=== PATIENT | female | born 1995 | race Two or more races ===

== ENCOUNTER 2024-08-19 14:45 | Emergency (ER) | payer OTHER, SELFPAY ==
[2024-08-19 15:01] VITALS: BMI 15.1
--- NOTE | 2024-08-19 15:01 | EDRN ---
Angelina Slaughter SIGNAL MANAGER currently at the pts bedside with 2 police offers placing steri strips on the pts forehead
[2024-08-19 15:03] VITALS: BP 125/93
--- NOTE | 2024-08-19 15:04 | ED.SKININJ ---
HPI-Injury
General
Chief Complaint: Skin Surface Trauma
Source: patient and police
Exam Limitations: none
Time Seen by Provider: 08/19/24 15:02
Nursing documentation reviewed up to this point in time: agreed with
History of Present Illness-Injury
Initial Injury comments:
29-year-old female brought in by [employer] police for forehead laceration from striking her forehead on a fdc cell wall within past hour, is being transported to [facility]. No LOC, Pt refusing Tdap.
Past History
Past History
ED Past Medical History: Other (Depression, substance abuse, bipolar)
Social History
Drug: Other (Uses Tranq)
Review of Systems
Review of Systems
Allergies reviewed?: Yes
All Other Systems: ROS reviewed and negative except as documented in HPI and ROS
Respiratory: Denies trouble breathing
Cardiac: Denies chest pain
ABD/GI: Denies abdominal pain
Skin: Reports other (Forehead cut. Contraction Scar right dorsal wrist)
Neurological: Denies dizzy, headache or weakness
Psychiatric: Reports depression and other
Phy Exam
Physical Exam
Physical Exam:
GENERAL: No acute distress. A&Ox3.
CONSTITUTIONAL: Afebrile.
EYES: clear, conjunctivae normal
ENMT: moist mucus membranes
RESPIRATORY: Regular respirations, nonlabored, lungs clear.
CARDIOVASCULAR: Regular rate and rhythm, no murmurs, no rubs.
GI: Soft, nontender
MUSCULOSKELETAL: Moves with ease
SKIN: Warm, dry. 5 mm laceration mid forehead
PSYCH: Anxious mood and affect. Unkempt, thrashing about at times 'It hinkle' (the wound glue).
NEUROLOGIC: Awake, alert and oriented. No focal neurological deficits
Course
Vital Signs
Initial and Last Documented VS:
Initial Vital Signs
Temp Pulse Resp BP Pulse Ox
98.1 F 111 16 125/93 98
08/19/24 15:03 08/19/24 15:03 08/19/24 15:03 08/19/24 15:03 08/19/24 15:03
Last Documented Vital Signs
Temp Pulse Resp BP Pulse Ox
98.1 F 111 16 125/93 98
08/19/24 15:03 08/19/24 15:03 08/19/24 15:03 08/19/24 15:03 08/19/24 15:03
MDM/Problems Addressed
MDM/Problems Addressed:
29-year-old female brought in by [employer] police for forehead laceration from striking her forehead on a [employer]dc cell wall, is being transported to [facility]. No LOC, Pt refusing Tdap.
Forehead lac cleansed and glued, steristrips applied.
No focal neuro deficits
Stable for incarceration
*Critical Care Note
Total Time (30-74mins, 75-104mins- exclusive of procedures): Not Applicable
ED Attending Note
-
Portions of this chart may have been created with voice recognition software.� Occasional wrong word or��sound alike� substitutions may have occurred due to the inherent limitations of voice recognition software.
Discharge Plan
Departure
Patient Disposition: Senior Care
Date of Disposition: 08/19/24
Time of Disposition: 15:10
Patient with high blood pressure during this ER visit?: No
Condition: Fair
Discharge Problem:
Intentional self-harm, Forehead laceration
Instructions: Laceration Repair With Glue (DC), Minor Head Injury, Adult ED
Prescriptions:
No Action
No Current Medications
0
Referrals:
FAUSTINA STOVALL [Other]
Activity Restrictions/Additional Instructions:
It takes about 5 days for this area to heal, if the strips have not fallen off by then you may remove them.
Interventions
Interventions:
*Risk Screen - Suicide Last Done: 08/19/24 14:46
*General Assessment Last Done: 08/19/24 14:46
*Neglect/Abuse Screening Last Done: 08/19/24 14:46
ED- Fall Risk Assessment Last Done: 08/19/24 15:01
*ED COVID-19 Vaccine History Last Done: 08/19/24 14:46
*Nursing Disposition Last Done: 08/19/24 15:16
ED-Skin Assessment Last Done: 08/19/24 14:46
Discharge Date and Time
Discharge Date/Time: 08/19/24 15:16
Print Language: MACEDONIAN
== END 2024-08-19 15:16 ==
LOC: EMR 14:45
PROVIDERS: EMERGENCY PHYSICIAN Student in an Organized Health Care Education/Training Program
DX: S01.81XA Laceration without foreign body of other part of head, initial encounter (principal); X83.8XXA Intentional self-harm by other specified means, initial encounter
CPT/HCPCS: 12011; 99282